=== PATIENT | female | born 1995 | race Caucasian/White ===

== ENCOUNTER 2022-01-07 12:21 | Emergency (ER) | payer MEDICAID ==
[~2022-01-07] VITALS: Ht 160 cm; Wt 102.6 kg
[2022-01-07 12:37] VITALS: BP 132/80
--- NOTE | 2022-01-07 12:40 | NUR ---
C/O 01/24 LEFT ANKLE/FOOT PAIN S/P TWISTED X YESTERDAY. PMH: 4 C SECTIONS
--- NOTE | 2022-01-07 13:16 | NUR ---
Patient being evaluated by DR GIBSON at TRIAGE ROOM.
[2022-01-07] MEDS ORDERED: ACETAMINOPHEN 325 MG TAB PO ONE (13:20)
[2022-01-07] MEDS ORDERED: IBUPROFEN 400 MG TAB PO ONE (13:20)
[2022-01-07] MEDS ORDERED: IBUP-2213 PO (14:00)
--- NOTE | 2022-01-07 15:12 | NUR ---
PER ER MD BARKER WRAP X 1 APPLIED TO L ANKLE. PT ALSO INSTRUCTED ON HOW TO USE CRUTCHES. ADJUSTED TO HEIGHT AND ARM LENGTH. PT RETURNED SAFE DEMONSTRATION OF CRUTCHES.
[2022-01-07 15:25] VITALS: BP 132/80
--- NOTE | 2022-01-07 15:25 | NUR ---
Patient discharged with v/s stable. Written and verbal after care instructions given and explained. Patient alert, oriented and verbalized understanding of instructions. Ambulatory with CRUTCHES. All questions addressed prior to discharge. ID band removed. Patient advised to follow up with PMD. Rx of IBUPROFEN given. Patient educated on indication of medication including possible reaction and side effects. Opportunity to ask questions provided and answered.
== END 2022-01-07 15:25 | disposition home or self-care (01) ==
LOC: MED 12:21
DX: S93.402A Sprain of unspecified ligament of left ankle, initial encounter (principal); W18.30XA Fall on same level, unspecified, initial encounter; Y93.89 Activity, other specified; Y92.89 Other specified places as the place of occurrence of the external cause; Y99.8 Other external cause status
CPT/HCPCS: 73610; 73630; 99284; Q0092

== ENCOUNTER 2023-01-10 18:21 | Emergency (ER) | payer MEDICAID ==
[~2023-01-10] VITALS: Ht 162.6 cm; Wt 111.1 kg
[~2023-01-10 18:21] MED LIST: IBUP-2213 PO
[2023-01-10 18:38] VITALS: BP 151/81; PULSE 115; RESP 16; TEMP 97.8; O2SAT 100
[2023-01-10] MEDS ORDERED: ACET-10509 PO (19:30)
[2023-01-10] MEDS ORDERED: IBUPROFEN 600 MG TAB PO ONE (19:30)
[2023-01-10] MEDS ORDERED: IBUP-2213 PO (19:30)
[2023-01-10 20:00] VITALS: BP 151/81; PULSE 115; RESP 16; TEMP 97.8; O2SAT 100
--- NOTE | 2023-01-10 20:00 | NUR ---
Patient discharged with v/s stable. Written and verbal after care instructions given and explained. Patient alert, oriented and verbalized understanding of instructions. Ambulatory with steady gait. All questions addressed prior to discharge. ID band removed. Patient advised to follow up with PMD. Rx of TYLENOL, IBUPROFEN given. Patient educated on indication of medication including possible reaction and side effects. Opportunity to ask questions provided and answered.
== END 2023-01-10 20:00 | disposition home or self-care (01) ==
LOC: MED 18:21
DX: S63.602A Unspecified sprain of left thumb, initial encounter (principal); Z98.890 Other specified postprocedural states; Z79.899 Other long term (current) drug therapy; Z79.1 Long term (current) use of non-steroidal anti-inflammatories (NSAID); W18.39XA Other fall on same level, initial encounter; Y92.009 Unspecified place in unspecified non-institutional (private) residence as the place of occurrence of the external cause; Y93.89 Activity, other specified; Y99.8 Other external cause status
CPT/HCPCS: 73140; 99283

== ENCOUNTER 2024-01-12 13:47 | Emergency (ER) | payer MEDICAID, OTHER ==
[~2024-01-12] VITALS: Ht 162.6 cm; Wt 106.6 kg
[~2024-01-12 13:47] MED LIST changes: +ACET-10509 PO
[2024-01-12 14:15] VITALS: BP 140/84; PULSE 103; RESP 18; TEMP 98.7; O2SAT 99
[2024-01-12 15:06] LABS: BASOPHILS % (AUTO) 0.6 % (0.0-2.0); EOSINOPHILS # (AUTO) 0.2 K/uL (0-0.4); EOSINOPHILS % (AUTO) 3.2 % (0.0-4.0); HEMOGLOBIN 9.5 g/dL (12.0-16.0); LYMPHOCYTES # (AUTO) 1.6 K/uL (2.5-16.5); LYMPHOCYTES % (AUTO) 27.2 % (20.5-51.1); MEAN CORPUSCULAR HEMOGLOBIN 22 pg (27-31); MEAN CORPUSCULAR HGB CONC 31 g/dL (33-37); MONOCYTES # (AUTO) 0.6 K/uL (0.8-1.0); MONOCYTES % (AUTO) 10.2 % (1.7-9.3); NEUTROPHILS # (AUTO) 3.6 K/uL (1.8-7.7); NEUTROPHILS % (AUTO) 58.8 % (42.2-75.2); PLATELET COUNT (AUTO) 311 K/uL (140-450); RED BLOOD CELL COUNT(AUTO) 4.31 MIL/uL (4.20-5.40); RED CELL DISTRIBUTION WIDTH 17.7 % (11.6-13.7); WHITE BLOOD COUNT (AUTO) 6.1 K/uL (4.8-10.8)
[2024-01-12 15:11] LABS: APPEARANCE,URINE CLEAR (CLEAR); BILIRUBIN,URINE NEGATIVE (NEGATIVE); BLOOD, URINE NEGATIVE (NEGATIVE); COLOR,URINE YELLOW (YELLOW); LEUKOCYTE ESTERASE ,URINE NEGATIVE (NEGATIVE); NITRITE, URINE NEGATIVE (NEGATIVE); PH,URINE 8.5 (5.0-9.0); PROTEIN,URINE NEGATIVE (NEGATIVE); UGLUCOSE NEGATIVE (NEGATIVE); UROBILINOGEN,URINE 0.2 EU/dL (0.2 - 1)
[2024-01-12 15:23] LABS: ALBUMIN 3.6 g/dL (3.4-5.0); ANION GAP 12.2 (8-16); CALCIUM 8.6 mg/dL (8.5-10.1); CARBON DIOXIDE 28.6 mmol/L (21-32); CREATININE 0.7 mg/dL (0.6-1.3); POTASSIUM 3.8 mmol/L (3.5-5.1); TOTAL BILIRUBIN 0.2 mg/dL (0.0-1.0); TOTAL PROTEIN, SERUM 7.9 g/dL (6.4-8.2)
[2024-01-12 16:54] VITALS: BP 140/84; PULSE 103; RESP 18; TEMP 98.7; O2SAT 99
== END 2024-01-12 16:54 | disposition home or self-care (01) ==
LOC: MED 13:47
DX: R10.2 Pelvic and perineal pain (principal); Z98.51 Tubal ligation status; Z79.899 Other long term (current) drug therapy
CPT/HCPCS: 36415; 74176; 76856; 80053; 81003; 81025; 83690; 85025; 93976; 99284; Q0092

== ENCOUNTER 2024-03-16 10:45 | Emergency (ER) | payer OTHER ==
[~2024-03-16] VITALS: Ht 162.6 cm; Wt 108.9 kg
[~2024-03-16 10:45] MED LIST changes: -ACET-10509 PO; +ACET500T99 PO
[2024-03-16 10:56] VITALS: BP 142/90; PULSE 104; RESP 16; TEMP 97.7; O2SAT 100
[2024-03-16] MEDS ORDERED: EPINEPHrine 1 MG/ML AMP ONE (11:24)
[2024-03-16] MEDS: ONDANSETRON 4 MG ODT PO ONE (13:14)
[2024-03-16] MEDS: IBUPROFEN 600 MG TAB PO ONE (13:14)
[2024-03-16 13:51] LABS: FLU A ANTIGEN negative (NEGATIVE); FLU B ANTIGEN NEGATIVE (NEGATIVE)
== END 2024-03-16 14:00 | disposition home or self-care (01) ==
LOC: MED 10:45
DX: H92.01 Otalgia, right ear (principal); R09.81 Nasal congestion; J02.9 Acute pharyngitis, unspecified; M79.18 Myalgia, other site; R11.0 Nausea; Z20.822 Contact with and (suspected) exposure to COVID-19; F17.200 Nicotine dependence, unspecified, uncomplicated; Z98.890 Other specified postprocedural states; Z79.899 Other long term (current) drug therapy
CPT/HCPCS: 81025; 87426; 87804; 99283; Q0162; J0171